=== PATIENT | male | born 1940 | race Caucasian/White ===

== ENCOUNTER 2021-02-16 14:18 | Observation (INO) | payer MEDICARE, OTHER ==
--- NOTE | 2021-02-16 14:24 | ERPHSYRPT ---
- History of Present Illness Time Seen by Provider: 02/16/21 14:25 Historian: patient Exam Limitations: no limitations Physician History: Patient is a 80-year-old male presents to our ED with complaints of left-sided chest pain. Patient states that chest pain started yesterday while pushing a lawnmower. Pain described as an ache that is localized to his left chest. P atient did feel some heart palpitations transiently. Symptoms resolved. However patient went to do yard work again today and symptoms recurred. Pain associated with mild shortness of breath. No associated nausea or vomiting. No diaphoresis no syncope. No dizziness. No rash. No fever. Symptoms are mild to moderate in intensity when present. Rest improves symptomology. Pain worsens with activity. Patient denies a cardiac history. Patient's otherwise healthy. He voices no other complaints or concerns at this time. Timing/Duration: yesterday Activities at Onset: activity Quality: aching Location: other (Pain occurs at the left side of his chest.) Chest Pain Radiation: no radiation Severity of Pain-Max: moderate Severity of Pain-Current: none Modifying Factors: Improves With: nothing Associated Symptoms: shortness of breath (Patient experiences mild short of breath with exertion.) Prior Chest Pain/Cardiac Workup: no prior chest pain Nitro Today/Relief: no nitro taken today Aspirin Treatment Today: no aspirin today Allergies/Adverse Reactions: No Known Drug Allergies Allergy (Unverified 02/16/21 14:19) Home Medications: Gemfibrozil 600 mg [Lopid 600 mg] 1 tablet PO DAILY 02/16/21 [History] Metoprolol Succinate 50 mg [Toprol Xl 50 MG] 1 tab PO DAILY 02/16/21 [History] Pravastatin Sodium 1 tab PO HS 02/16/21 [History] Tamsulosin HCl 1 cap PO DAILY 02/16/21 [History] Vitamin B Complex [B Complex] 1 tab PO DAILY 02/16/21 [History] - Review of Systems Constitutional: No Symptoms, No Fever, No Chills Eyes: No Symptoms Ears, Nose, & Throat: No Symptoms Respiratory: No Symptoms, No Cough, No Dyspnea Cardiac: No Symptoms, No Chest Pain, No Edema, No Syncope Abdominal/Gastrointestinal: No Symptoms, No Abdominal Pain, No Nausea, No Vomi ting, No Diarrhea Genitourinary Symptoms: No Symptoms, No Dysuria Musculoskeletal: No Symptoms, No Back Pain, No Neck Pain Skin: No Symptoms, No Rash Neurological: No Symptoms, No Dizziness, No Focal Weakness, No Sensory Changes Psychological: No Symptoms Endocrine: No Symptoms Hematologic/Lymphatic: No Symptoms Immunological/Allergic: No Symptoms All Other Systems: Reviewed and Negative - Nursing Vital Signs Nursing Vital Signs: Initial Vital Signs Temperature 97.6 F 02/16/21 14:18 Pulse Rate 70 02/16/21 14:18 Respiratory Rate 16 02/16/21 14:18 Blood Pressure 150/73 02/16/21 14:18 O2 Sat by Pulse Oximetry 97 02/16/21 14:18 Pain Scale Pain Intensity 2 - Physical Exam General Appearance: no apparent distress, alert Eye Exam: PERRL/EOMI, eyes nml inspection Ears, Nose, Throat Exam: normal ENT inspection, moist mucous membranes Neck Exam: normal inspection, non-tender, supple, full range of motion Respiratory Exam: normal breath sounds, lungs clear, No respiratory distress Cardiovascular Exam: regular rate/rhythm, normal heart sounds Gastrointestinal/Abdomen Exam: soft, No tenderness, No mass Back Exam: normal inspection, No CVA tenderness, No vertebral tenderness Extremity Exam: normal inspection, normal range of motion Neurologic Exam: alert, oriented x 3, cooperative, normal mood/affect, sensation nml, No motor deficits Skin Exam: normal color, warm, dry SpO2 Interpretation: normal SpO2: 97 O2 Delivery: Room Air - Course Nursing assessment & vital signs reviewed: Yes EKG Interpreted by Me: RATE (70), Sinus Rhythm, NORMAL AXIS, NORMAL INTERVALS - Radiology Exams Chest X-ray Interpretation: Teleradiologist Report (Nonacute chest.) Ordered Tests: Active Orders 24 hr Category Date Time Status Core Dipper STAT Care 02/16/21 14:21 Active EKG-ER Only STAT Care 02/16/21 14:20 Active IV Insertion STAT Care 02/16/21 14:20 Active Pulse Oximetry (ED) STAT Care 02/16/21 14:20 Active CHEST 1 VIEW (PORTABLE) Stat Exams 02/16/21 14:21 Completed CBC W DIFF Stat Lab 02/16/21 14:33 Completed CMP Stat Lab 02/16/21 14:33 Completed MAGNESIUM Stat Lab 02/16/21 14:33 Completed NT PRO BNP Stat Lab 02/16/21 14:33 Completed TROPONIN Q3H Lab 02/16/21 14:33 Completed TROPONIN Q3H Lab 02/16/21 17:30 Ordered TROPONIN Q3H Lab 02/16/21 20:30 Ordered TROPONIN Q3H Lab 02/16/21 23:30 Ordered TROPONIN Q3H Lab 02/17/21 02:30 Ordered UA W/RFX UR CULTURE Stat Lab 02/16/21 15:56 Completed Transfer Order Routine Transfer 02/16/21 Ordered Medication Summary Discontinued Medications Generic Name Dose Route Start Last Admin Trade Name Freq PRN Reason Stop Dose Admin Aspirin 324 mg 02/16/21 16:07 02/16/21 16:13 Baby Aspirin 81 Mg Chew PO 02/16/21 16:08 324 mg STAT ONE Administration Aspirin Confirm 02/16/21 16:13 Baby Aspirin 81 Mg Chew Administered 02/16/21 16:14 Dose 324 mg .ROUTE .STK-MED ONE Nitroglycerin 1 gm 02/16/21 16:08 02/16/21 16:14 Nitro-Bid 2% Ud Packets TOP 02/16/21 16:09 1 gm STAT ONE Administration Nitroglycerin Confirm 02/16/21 16:13 Nitro-Bid 2% Ud Packets Administered 02/16/21 16:14 Dose 1 gm .ROUTE .STK-MED ONE Lab/Rad Data: Laboratory Result Diagrams 02/16/21 14:33 02/16/21 14:33 Laboratory Results 02/16/21 02/16/21 02/16/21 Range/Units 16:17 15:56 14:33 WBC (4.0-10.5) K/mm3 RBC (4.1-5.6) M/mm3 Hgb (12.5-18.0) gm/dl Hct (42-50) % MCV (78-100) fl MCH (26-32) pg MCHC (32-36) g/dl RDW (11.5-14.0) % Plt Count (150-450) K/mm3 MPV (7.5-11.0) fl Gran % (36.0-66.0) % Eos # (Auto) (0-0.5) Absolute Lymphs (auto) (1.0-4.6) Absolute Monos (auto) (0.0-1.3) Lymphocytes % (24.0-44.0) % Monocytes % (0.0-12.0) % Eosinophils % (0.00-5.0) % Basophils % (0.0-0.4) % Absolute Granulocytes (1.4-6.9) Basophils # (0-0.4) Sodium (137-145) mmol/L Potassium (3.5-5.1) mmol/L Chloride (98-107) mmol/L Carbon Dioxide (22-30) mmol/L Anion Gap (5-15) MEQ/L BUN (9-20) mg/dL Creatinine (0.66-1.25) mg/dL Estimated GFR ML/MIN Glucose (74-106) mg/dL Calcium (8.4-10.2) mg/dL Magnesium (1.6-2.3) mg/dL Total Bilirubin (0.2-1.3) mg/dL AST (17-59) U/L ALT (0-50) U/L Alkaline Phosphatase (38-126) U/L Troponin I (0.000-0.034) ng/mL NT-Pro-B Natriuret Pep 50.5 (0-1800) pg/mL Serum Total Protein (6.3-8.2) g/dL Albumin (3.5-5.0) g/dL Urine Color JANNETH (YELLOW) Urine Appearance SLIGHTLY CLOUDY (CLEAR) Urine pH 5.0 (5-6) Ur Specific [place] 1.024 (1.005-1.025) Urine Protein NEGATIVE (Negative) Urine Ketones NEGATIVE (NEGATIVE) Urine Blood NEGATIVE (0-5) Pedro/ul Urine Nitrite NEGATIVE (NEGATIVE) Urine Bilirubin NEGATIVE (NEGATIVE) Urine Urobilinogen NEGATIVE (0-1) mg/dL Ur Leukocyte Esterase NEGATIVE (NEGATIVE) Urine WBC (Auto) NONE (0-5) /HPF Urine RBC (Auto) 3-5 (0-2) /HPF U Epithel Cells (Auto) NONE (FEW) /HPF Urine Bacteria (Auto) NONE (NEGATIVE) /HPF Urine Mucus (Auto) SLIGHT (NEGATIVE) /HPF Urine Culture Reflexed NO (NO) Urine Glucose NEGATIVE (NEGATIVE) mg/dL Influenza Type A Ag NEGATIVE (NEGATIVE) Influenza Type B Ag NEGATIVE (NEGATIVE) RSV (PCR) NEGATIVE (Negative) SARS-CoV-2 (PCR) NEGATIVE (NEGATIVE) 02/16/21 02/16/21 02/16/21 Range/Units 14:33 14:33 14:33 WBC 6.6 (4.0-10.5) K/mm3 RBC 4.27 (4.1-5.6) M/mm3 Hgb 13.3 (12.5-18.0) gm/dl Hct 39.6 L (42-50) % MCV 92.7 (78-100) fl MCH 31.1 (26-32) pg MCHC 33.6 (32-36) g/dl RDW 13.2 (11.5-14.0) % Plt Count 222 (150-450) K/mm3 MPV 9.8 (7.5-11.0) fl Gran % 62.8 (36.0-66.0) % Eos # (Auto) 0.27 (0-0.5) Absolute Lymphs (auto) 1.64 (1.0-4.6) Absolute Monos (auto) 0.50 (0.0-1.3) Lymphocytes % 25.0 (24.0-44.0) % Monocytes % 7.6 (0.0-12.0) % Eosinophils % 4.1 (0.00-5.0) % Basophils % 0.5 (0.0-0.4) % Absolute Granulocytes 4.13 (1.4-6.9) Basophils # 0.03 (0-0.4) Sodium 137 (137-145) mmol/L Potassium 3.8 (3.5-5.1) mmol/L Chloride 105 (98-107) mmol/L Carbon Dioxide 23 (22-30) mmol/L Anion Gap 12.6 (5-15) MEQ/L BUN 11 (9-20) mg/dL Creatinine 0.91 (0.66-1.25) mg/dL Estimated GFR > 60.0 ML/MIN Glucose 166 H (74-106) mg/dL Calcium 8.9 (8.4-10.2) mg/dL Magnesium 2.0 (1.6-2.3) mg/dL Total Bilirubin 0.50 (0.2-1.3) mg/dL AST 30 (17-59) U/L ALT 23 (0-50) U/L Alkaline Phosphatase 58 (38-126) U/L Troponin I < 0.012 (0.000-0.034) ng/mL NT-Pro-B Natriuret Pep (0-1800) pg/mL Serum Total Protein 6.6 (6.3-8.2) g/dL Albumin 4.1 (3.5-5.0) g/dL Urine Color (YELLOW) Urine Appearance (CLEAR) Urine pH (5-6) Ur Specific [place] (1.005-1.025) Urine Protein (Negative) Urine Ketones (NEGATIVE) Urine Blood (0-5) Pedro/ul Urine Nitrite (NEGATIVE) Urine Bilirubin (NEGATIVE) Urine Urobilinogen (0-1) mg/dL Ur Leukocyte Esterase (NEGATIVE) Urine WBC (Auto) (0-5) /HPF Urine RBC (Auto) (0-2) /HPF U Epithel Cells (Auto) (FEW) /HPF Urine Bacteria (Auto) (NEGATIVE) /HPF Urine Mucus (Auto) (NEGATIVE) /HPF Urine Culture Reflexed (NO) Urine Glucose (NEGATIVE) mg/dL Influenza Type A Ag (NEGATIVE) Influenza Type B Ag (NEGATIVE) RSV (PCR) (Negative) SARS-CoV-2 (PCR) (NEGATIVE) - Progress Progress: improved Air Movement: good Progress Note: Patient reassessed. Vital stable. No active chest pain. Aspirin and nitroglycerin administered. In light of patient's history of high cholesterol age risk factor and symptomology we will admit patient for cardiac rule out. Initial troponin negative. Essentially negative nonremarkable chest x-ray. No acute pathology observed. Case discussed with Dr. Zurita who accepts admission to observation. Covid test negative. Plan of care discussed with patient. He agrees to admission at [facility] for further evaluation and treatment. at bedside. They voiced no other complaints or concerns at this time. 02/16/21 17:29 02/16/21 17:31 Blood Culture(s) Obtained: No Antibiotics given: No Discussed with : Anand Will see patient in: hospital (observation) Counseled pt/family regarding: lab results, diagnosis, rad results - Departure Departure Disposition: Observation Clinical Impression: ACS (acute coronary syndrome), Stable angina Condition: Stable Critical Care Time: No Referrals: JAXON ZURITA MD [Primary Care Provider] -
[2021-02-16 14:38] LABS: Absolute Neutrophil Ct (ANC) 4.13 (1.4-6.9); BASOPHIL % 0.5 % (0.0-0.4); Basophil (Absolute #) 0.03 (0-0.4); Eosinophil % 4.1 % (0.00-5.0); Eosinophil (Absolute #) 0.27 (0-0.5); Hematocrit 39.6 % (42-50); Hemoglobin 13.3 gm/dl (12.5-18.0); Lymphocyte (Absolute #) 1.64 (1.0-4.6); Mean Cell Volume 92.7 fl (78-100); Mean Corpuscular Hemoglobin 31.1 pg (26-32); Mean Corpuscular Hgb Concent. 33.6 g/dl (32-36); Mean Platelet Volume 9.8 fl (7.5-11.0); Monocytes % 7.6 % (0.0-12.0); Neutrophil % 62.8 % (36.0-66.0); Platelet Count 222 K/mm3 (150-450); Red Blood Count 4.27 M/mm3 (4.1-5.6); Red Cell Distribution Width 13.2 % (11.5-14.0); White Blood Count 6.6 K/mm3 (4.0-10.5)
--- NOTE | 2021-02-16 14:58 | XRAY ---
Indication: Chest pain. Comparison: April 06, 2008. Portable apical lordotic chest remains clear. Heart is not enlarged. Bony thorax intact again with mild degenerative changes. Impression: Continue nonacute chest.
[2021-02-16 14:59] LABS: ALBUMIN 4.1 g/dL (3.5-5.0); ALKALINE PHOSPHATASE 58 U/L (38-126); ANION GAP 12.6 MEQ/L (5-15); BLOOD UREA NITROGEN 11 mg/dL (9-20); CHLORIDE 105 mmol/L (98-107); Calcium 8.9 mg/dL (8.4-10.2); Carbon Dioxide 23 mmol/L (22-30); Creatinine 1 0.91 mg/dL (0.66-1.25); EST GLOMERULAR FILTRATION RATE > 60.0 ML/MIN; Glucose 166 mg/dL (74-106); Potassium 3.8 mmol/L (3.5-5.1); SGOT/AST 30 U/L (17-59); SGPT/ALT 23 U/L (0-50); SODIUM 137 mmol/L (137-145); Total Protein 6.6 g/dL (6.3-8.2)
[2021-02-16] MEDS ORDERED: BABY ASPIRIN 81 MG CHEW PO ONE (16:07)
[2021-02-16] MEDS ORDERED: NITRO-BID 2% UD PACKETS TOP ONE (16:08)
[2021-02-16] MEDS ORDERED: BABY ASPIRIN 81 MG CHEW ONE (16:13)
[2021-02-16] MEDS ORDERED: NITRO-BID 2% UD PACKETS ONE (16:13)
[2021-02-16 16:31] LABS: Appearance SLIGHTLY CLOUDY (CLEAR); Bilirubin NEGATIVE (NEGATIVE); Blood NEGATIVE Ery/ul (0-5); Glucose NEGATIVE (NEGATIVE); Ketones NEGATIVE (NEGATIVE); Leukocyte Esterase NEGATIVE (NEGATIVE); Mucus SLIGHT /HPF (NEGATIVE); Nitrite NEGATIVE (NEGATIVE); Protein,Urine Dip NEGATIVE (Negative); Specific Gravity 1.024 (1.005-1.025); Urobilinogen NEGATIVE mg/dL (0-1)
[2021-02-16 16:59] LABS: INFLUENZA A NEGATIVE (NEGATIVE); INFLUENZA B NEGATIVE (NEGATIVE); RESPIRATORY SYNCTIAL VIRUS NEGATIVE (Negative)
[2021-02-16] MEDS ORDERED: Senokot-S Tablet PO PRN (18:04)
[2021-02-16] MEDS ORDERED: MILK OF MAGNESIA 30 ML PO PRN (18:04)
[2021-02-16] MEDS ORDERED: TYLENOL 325 MG PO PRN (18:04)
[2021-02-16] MEDS ORDERED: MAALOX ES 30 ML UNIT DOSE PO PRN (18:04)
[2021-02-16] MEDS ORDERED: Zofran 4 MG/2 ML VIAL IV PRN (18:04)
[2021-02-16] MEDS ORDERED: Flomax 0.4 MG PO SCH (22:00)
[2021-02-16] MEDS ORDERED: ZOCOR 20MG PO SCH (22:00)
[2021-02-16] MEDS ORDERED: ECOTRIN 81 MG PO SCH (22:00)
[2021-02-16] MEDS ORDERED: LOPID 600 MG PO SCH (22:00)
[2021-02-17 04:52] VITALS: O2SAT 94
[2021-02-17] MEDS ORDERED: VITA-BEE WITH C PO SCH (10:00)
[2021-02-17] MEDS ORDERED: Toprol Xl 50 MG PO SCH (10:00)
[2021-02-17] MEDS ORDERED: VITAMIN B COMPLEX PO SCH (10:00)
[2021-02-17 12:25] VITALS: BP 134/63; PULSE 62
--- NOTE | 2021-02-17 17:14 | PCM.SSS ---
History of Present Illness - Chief Complaint Chief Complaint: chest pain off and on for 1 day History of Present Illness: is a 80 year old male.presents to our ED with complaints of left- sided chest pain. Patient states that chest pain started yesterday while pushing a lawnmower. Pain described as an ache that is localized to his left chest. Patient did feel some heart palpitations transiently. Symptoms resolved. However patient went to do yard work again today and symptoms recurred. Pain associated with mild shortness of breath. No associated nausea or vomiting. No diaphoresis no syncope. No dizziness. No rash. No fever. Symptoms are mild to moderate in intensity when present. Rest improves symptomology. Pain worsens with activity. Patient denies a cardiac history. Patient's otherwise healthy. He voices no other complaints or concerns at this time. - Review of Systems Constitutional: No Fever, No Chills Eyes: No Symptoms Ears, Nose, & Throat: No Symptoms Respiratory: No Cough, No Short Of Breath Cardiac: Chest Pain, Orthopnea, No Edema, No Syncope Abdominal/Gastrointestinal: No Abdominal Pain, No Nausea, No Vomiting, No Diarrhea Genitourinary Symptoms: No Dysuria Musculoskeletal: No Back Pain, No Neck Pain Skin: No Rash Neurological: No Dizziness, No Focal Weakness, No Sensory Changes Psychological: No Symptoms Endocrine: No Symptoms Hematologic/Lymphatic: No Symptoms Immunological/Allergic: No Symptoms Medications & Allergies Home Medications: Home Medication List Aspirin 81 mg PO HS 02/16/21 [History Confirmed 02/16/21] Gemfibrozil 600 mg [Lopid 600 mg] 600 mg PO HS 02/16/21 [History Confirmed 02/16/21] Metoprolol Succinate 50 mg [Toprol Xl 50 MG] 50 tab PO DAILY 02/16/21 [History Confirmed 02/16/21] Pravastatin Sodium 40 tab PO HS 02/16/21 [History Confirmed 02/16/21] Tamsulosin HCl 0.4 tab PO HS 02/16/21 [History Confirmed 02/16/21] Vitamin B Complex [B Complex] 1 tab PO DAILY 02/16/21 [History Confirmed 02/16/21] Allergies/Adverse Reactions: Allergies Allergy/AdvReac Type Severity Reaction Status Date / Time No Known Drug Allergies Allergy Verified 02/16/21 18:06 - Past Medical History Past Medical History: Yes Neurological History: No Pertinent History ENT History: No Pertinent History Cardiac History: High Cholesterol, Hypertension Respiratory History: No Pertinent History Endocrine Medical History: Hypoglycemia Musculoskelatal History: Arthritis GI Medical History: No Pertinent History History: No Pertinent History Pyscho-Social History: No Pertinent History Male Reproductive Disorders: Prostate Problems - Past Surgical History Past Surgical History: Yes Neuro Surgical History: No Pertinent History Cardiac History: No Pertinent History Respiratory Surgery: No Pertinent History GI Surgical History: No Pertinent History Genitourinary Surgical Hx: No Pertinent History Musculskeletal Surgical Hx: No Pertinent History Male Surgical History: No Pertinent History Other Surgical History: I & D OF LEG WOUND - Social History Smoking Status: Never smoker Exposure to second hand smoke: No Alcohol: None Drug Use: none - Physical Exam Vital Signs: Vital Signs - 24 hr Temp Pulse Resp BP Pulse Ox 02/17/21 12:24 62 134/63 02/17/21 10:02 66 112/60 02/17/21 07:47 97.8 F 63 18 93/52 94 L 02/17/21 07:19 94 L 02/17/21 04:00 97.9 F 62 18 108/62 94 L 02/16/21 23:55 97.7 F 63 18 104/59 93 L 02/16/21 21:25 93 L 02/16/21 19:31 97.5 F 59 L 16 125/65 93 L 02/16/21 18:09 97.5 F 59 L 16 125/65 93 L 02/16/21 17:31 97 General Appearance: no apparent distress, alert Neurologic Exam: alert, oriented x 3, cooperative, normal mood/affect, nml cerebellar function, nml station & gait, sensation nml, No motor deficits Eye Exam: PERRL/EOMI, eyes nml inspection Ears, Nose, Throat Exam: normal ENT inspection, TMs normal, pharynx normal, moist mucous membranes Neck Exam: normal inspection, non-tender, supple, full range of motion Respiratory Exam: normal breath sounds, lungs clear, No respiratory distress Cardiovascular Exam: regular rate/rhythm, normal heart sounds, normal peripheral pulses Gastrointestinal/Abdomen Exam: soft, normal bowel sounds, No tenderness, No mass Back Exam: normal inspection, normal range of motion, No CVA tenderness, No vertebral tenderness Extremity Exam: normal inspection, normal range of motion, pelvis stable Skin Exam: normal color, warm, dry, No rash Lymphatic Exam: No adenopathy Results - Labs Lab/Micro Results: Lab Results-Last 24 Hours 02/16/21 02/16/21 02/16/21 Range/Units 18:15 20:40 23:30 Troponin I < 0.012 < 0.012 < 0.012 (0.000-0.034) ng/mL Triglycerides (30-150) mg/dL Cholesterol (50-200) mg/dL LDL Cholesterol (30-100) mg/dL HDL Cholesterol (40-60) mg/dL Heart Disease Risk Ratio 02/17/21 02/17/21 Range/Units 02:45 02:45 Troponin I < 0.012 (0.000-0.034) ng/mL Triglycerides 106 (30-150) mg/dL Cholesterol 144 (50-200) mg/dL LDL Cholesterol 89 (30-100) mg/dL HDL Cholesterol 36 L (40-60) mg/dL Heart Disease Risk Ratio 4.0 - Radiology Impressions Radiology Exams & Impressions: Radiology Procedures Category Date Time Status CHEST 1 VIEW (PORTABLE) Stat Exams 02/16/21 14:21 Completed - Other Procedures and Tests Respiratory Therapy 02/18/21 05:00 EKG DAILY 02/19/21 05:00 EKG DAILY Assessment/Plan (1) Chest pain, rule out acute myocardial infarction Status: Acute Code(s): R07.9 - CHEST PAIN, UNSPECIFIED (2) ACS (acute coronary syndrome) Status: Acute Code(s): I24.9 - ACUTE ISCHEMIC HEART DISEASE, UNSPECIFIED (3) Stable angina Status: Acute Code(s): I20.8 - OTHER FORMS OF [facility] Hospital Summary - Hospital Course Hospital Course: Chief Complaint Diagnosis ACS Allergies Allergy/AdvReac Type Severity Reaction Status Date / Time No Known Drug Allergies Allergy Verified 02/16/21 18:06 Vital Signs (Last 24 hours) Temp Pulse Resp BP Pulse Ox 02/17/21 12:24 62 134/63 02/17/21 10:02 66 112/60 02/17/21 07:47 97.8 F 63 18 93/52 94 L 02/17/21 07:19 94 L 02/17/21 04:00 97.9 F 62 18 108/62 94 L 02/16/21 23:55 97.7 F 63 18 104/59 93 L 02/16/21 21:25 93 L 02/16/21 19:31 97.5 F 59 L 16 125/65 93 L 02/16/21 18:09 97.5 F 59 L 16 125/65 93 L 02/16/21 17:31 97 Home Medications Medication Instructions Recorded Confirmed Last Taken Type Aspirin 81 mg PO HS 02/16/21 02/16/21 02/15/21 History Gemfibrozil 600 mg [Lopid 600 600 mg PO HS 02/16/21 02/16/21 02/15/21 History mg] Metoprolol Succinate 50 mg 50 tab PO DAILY 02/16/21 02/16/21 02/16/21 History [Toprol Xl 50 MG] Pravastatin Sodium 40 tab PO HS 02/16/21 02/16/21 02/15/21 History Tamsulosin HCl 0.4 tab PO HS 02/16/21 02/16/21 02/15/21 History Vitamin B Complex [B Complex] 1 tab PO DAILY 02/16/21 02/16/21 02/16/21 History Current Medications Discontinued Medications Generic Name Dose Route Start Last Admin Trade Name Freq PRN Reason Stop Dose Admin Acetaminophen 650 mg 02/16/21 18:04 Tylenol 325 Mg PO 03/18/21 18:03 Q4H PRN PRN PAIN AND/OR FEVER Al Hydrox/Mg Hydrox/Simethicone 30 ml 02/16/21 18:04 Maalox Es 30 Ml Unit Dose PO 03/18/21 18:03 Q4H PRN PRN INDIGESTION Aspirin 324 mg 02/16/21 16:07 02/16/21 16:13 Baby Aspirin 81 Mg Chew PO 02/16/21 16:08 324 mg STAT ONE Administration Aspirin Confirm 02/16/21 16:13 Baby Aspirin 81 Mg Chew Administered 02/16/21 16:14 Dose 324 mg .ROUTE .STK-MED ONE Aspirin 81 mg 02/16/21 22:00 02/16/21 21:14 Ecotrin 81 Mg PO 03/18/21 21:59 81 mg HS BRIEN Administration Gemfibrozil 600 mg 02/16/21 22:00 02/16/21 21:15 Lopid 600 Mg PO 03/18/21 21:59 600 mg HS BRIEN Administration Magnesium Hydroxide 30 - 60 ml 02/16/21 18:04 Milk Of Magnesia 30 Ml PO 03/18/21 18:03 QDP PRN CONSTIPATION Metoprolol Succinate 50 mg 02/17/21 10:00 02/17/21 12:32 Toprol Xl 50 Mg PO 03/19/21 09:59 50 mg DAILY BRIEN Administration Multivitamins 1 tab 02/17/21 10:00 02/17/21 10:11 Annetta-Bee With C PO 03/19/21 09:59 1 tab DAILY BRIEN Administration Nitroglycerin 1 gm 02/16/21 16:08 02/16/21 16:14 Nitro-Bid 2% Ud Packets TOP 02/16/21 16:09 1 gm STAT ONE Administration Nitroglycerin Confirm 02/16/21 16:13 Nitro-Bid 2% Ud Packets Administered 02/16/21 16:14 Dose 1 gm .ROUTE .STK-MED ONE Ondansetron HCl 4 mg 02/16/21 18:04 Zofran 4 Mg/2 Ml Vial IV 03/18/21 18:03 Q4H PRN PRN NAUSEA/VOMITING Senna/Docusate Sodium 2 udtab 02/16/21 18:04 Senokot-S Tablet PO 03/18/21 18:03 BID PRN PRN CONSTIPATION Simvastatin 40 mg 02/16/21 22:00 02/16/21 21:14 Zocor 20mg PO 03/18/21 21:59 40 mg HS BRIEN Administration Tamsulosin HCl 0.4 mg 02/16/21 22:00 02/16/21 21:14 Flomax 0.4 Mg PO 03/18/21 21:59 0.4 mg HS BRIEN Administration Intake & Output (Last 24 hours) 02/15/21 02/16/21 02/17/21 02/18/21 11:59 11:59 11:59 11:59 Intake Total 760 360 Balance 760 360 Weight 92.6 kg Laboratory Results (Last 24 hours) 02/17/21 02/17/21 02/16/21 02:45 02:45 23:30 Troponin I < 0.012 < 0.012 Triglycerides 106 Cholesterol 144 LDL Cholesterol 89 HDL Cholesterol 36 L Heart Disease Risk Ratio 4.0 02/16/21 02/16/21 20:40 18:15 Troponin I < 0.012 < 0.012 Triglycerides Cholesterol LDL Cholesterol HDL Cholesterol Heart Disease Risk Ratio Orders (Last 24 hours) Category Date Time Status Bedrest ROUTINE Activity 02/16/21 18:04 Active Bedrest with BRP/BSC ROUTINE Activity 02/16/21 18:04 Active Code Status Order ROUTINE Care 02/16/21 18:04 Active IV Care Q6H Care 02/16/21 18:04 Active Implement Chest Pain Pathway ROUTINE Care 02/16/21 18:[address] in Observation ROUTINE Care 02/16/21 18:04 Active Eben Singleton, Apply ROUTINE Care 02/16/21 18:04 Active Weight,Daily 0600 Care 02/16/21 18:04 Active Back Stayer/Discharge Plan ROUTINE Cons 02/16/21 18:32 Active Discharge Routine Discharge 02/17/21 Ordered LIPID PROFILE AM.LAB Lab 02/17/21 02:45 Completed TROPONIN Q3H Lab 02/16/21 18:15 Completed TROPONIN Q3H Lab 02/16/21 20:40 Completed TROPONIN Q3H Lab 02/16/21 23:30 Completed TROPONIN Q3H Lab 02/17/21 02:45 Completed Acetaminophen 325 mg [Tylenol 325 mg] Med 02/16/21 18:04 Discontinued 650 mg PO Q4H PRN PRN Aspirin EC 81 mg [Ecotrin 81 mg] Med 02/16/21 22:00 Discontinued 81 mg PO HS Gemfibrozil 600 mg [Lopid 600 mg] Med 02/16/21 22:00 Discontinued 600 mg PO HS Mag Hydrox/Al Hydrox/Simeth [Maalox Es 30 ml Unit Med 02/16/21 18:04 Discontinued Dose] 30 ml PO Q4H PRN PRN Magnesium Hydroxide 30 ml [Milk of Magnesia 30 ml Med 02/16/21 18:04 Discontinued ] 30 - 60 ml PO QDP PRN Metoprolol Succinate 50 mg [Toprol Xl 50 MG] Med 02/17/21 10:00 Di scontinued 50 mg PO DAILY Ondansetron HCl 4 mg/2 ml [Zofran 4 MG/2 ML VIAL] Med 02/16/21 18:04 Discontinued 4 mg IV Q4H PRN PRN Senna/Docusate Sodium Tab [Senokot-S Tablet] Med 02/16/21 18:04 Discontinued 2 udtab PO BID PRN PRN Simvastatin 20Mg [Zocor 20Mg] Med 02/16/21 22:00 Discontinued 40 mg PO HS Tamsulosin HCl 0.4 mg [Flomax 0.4 MG] Med 02/16/21 22:00 Discontinued 0.4 mg PO HS Vitamin B Comp W-C [Annetta-Bee with C] Med 02/17/21 10:00 Discontinued 1 tab PO DAILY EKG DAILY RT 02/17/21 05:00 Completed EKG DAILY RT 02/18/21 05:00 Active EKG DAILY RT 02/19/21 05:00 Active EKG Q8HX2,QAMX3,PRN RT 02/16/21 18:04 Completed EKG ROUTINE RT 02/16/21 21:20 Completed Pulse Oximetry .spot check RT 02/16/21 20:08 Active Patient Care Notes (Last 24 hours) 02/17/21 12:08 Case Management Note by Carissa Ragsdale DR. ROUNDED AND EVALUATED, DISCUSSED DX AND DISCHARGE PLAN WITH PT AND . BOTH VERBALIZED UNDERSTANDING OF INFORMATION AND UNDERSTAND THAT IF S/S RETURN TO COME BACK TO HOSPITAL. REPORTS THAT PT HAS AN APPOINTMENT TO SEE DR. Marylou CUENCA NEXT WEEK. REPORTS THAT HE HAS BEEN HAVING CHEST PRESSURE WITH ACTIVITY. DR. ZURITA DISCUSSED FOLLOWUP APPOINTMENT, AND ENCOURAGED TO KEEP APPOINTMENT WITH DR. Marylou CUENCA. PT/ DENY ADDNL NEEDS FOR DISCHARGE. Initialized on 02/17/21 12:08 - END OF NOTE 02/17/21 11:12 Nursing Note by Yarely Doyle Assessment completed by Gaby Engle [employer] Operator Initialized on 02/17/21 11:12 - END OF NOTE 02/16/21 23:52 Nursing Note by Vaishnavi Palafox PT C/T DENY CHEST DISCOMFORT, CURRENTLY RESTING IN BED AFTE USING RESTROOM. Initialized on 02/16/21 23:52 - END OF NOTE 02/16/21 22:21 Nursing Note by Vaishnavi Palafox Pt c/t deny chest pain or discomfort. Initialized on 02/16/21 22:21 - END OF NOTE - Vitals & Intake/Output Vital Signs: Vital Signs Temperature 97.8 F 02/17/21 07:47 Pulse Rate 62 02/17/21 12:24 Respiratory Rate 18 02/17/21 07:47 Blood Pressure 134/63 02/17/21 12:24 O2 Sat by Pulse Oximetry 94 L 02/17/21 07:47 Intake & Output: Intake & Output 02/15/21 02/16/21 02/17/21 02/18/21 11:59 11:59 11:59 11:59 Intake Total 760 360 Balance 760 360 Weight 92.6 kg - Lab Result Diagrams: 02/16/21 14:33 02/16/21 14:33 Lab Results-Last 24 Hrs: Lab Results-Last 24 Hours 02/16/21 02/16/21 02/16/21 Range/Units 18:15 20:40 23:30 Troponin I < 0.012 < 0.012 < 0.012 (0.000-0.034) ng/mL Triglycerides (30-150) mg/dL Cholesterol (50-200) mg/dL LDL Cholesterol (30-100) mg/dL HDL Cholesterol (40-60) mg/dL Heart Disease Risk Ratio 02/17/21 02/17/21 Range/Units 02:45 02:45 Troponin I < 0.012 (0.000-0.034) ng/mL Triglycerides 106 (30-150) mg/dL Cholesterol 144 (50-200) mg/dL LDL Cholesterol 89 (30-100) mg/dL HDL Cholesterol 36 L (40-60) mg/dL Heart Disease Risk Ratio 4.0 - Radiology Exams Ordered Rad Exams-Entire Visit: Radiology Procedures Category Date Time Status CHEST 1 VIEW (PORTABLE) Stat Exams 02/16/21 14:21 Completed - Procedures and Test Procedures and Tests throughout Hospitalization: Therapy Orders & Screens 02/16/21 18:04 EKG Q8HX2,QAMX3,PRN Comment: 02/16/21 21:20 EKG ROUTINE Comment: Diagnosis: ACS 02/17/21 05:00 EKG DAILY Comment: Diagnosis: ACS 02/18/21 05:00 EKG DAILY Comment: Diagnosis: ACS 02/19/21 05:00 EKG DAILY Comment: Diagnosis: ACS - Discharge Discharge Date: 02/17/21 Disposition: Home, Self-Care Condition: Stable Prescriptions: Continue Tamsulosin HCl 0.4 tab PO HS Pravastatin Sodium 40 tab PO HS Metoprolol Succinate 50 mg [Toprol Xl 50 MG] 50 tab PO DAILY Gemfibrozil 600 mg [Lopid 600 mg] 600 mg PO HS Vitamin B Complex [B Complex] 1 tab PO DAILY Aspirin 81 mg PO HS Instructions: Chest Pain (DC) Additional Instructions: DR ZURITA APPOINTMENT AT [facility] Follow up with: MEG CUENCA [CONSULTING PHYSICIAN] - (KEEP YOUR SCHEDULED APPOINTMENT WITH DR. Marylou CUENCA NEXT WEEK.) JAXON ZURITA MD [Primary Care Provider] - 03/06/21 2:45 pm Forms: Discharge Instructions
== END 2021-02-17 12:57 | disposition home or self-care (01) ==
LOC: ED 14:18 → MED SURG 17:53
PROVIDERS: ADMIT General Practice; ATTEND General Practice
DX: R07.9 Chest pain, unspecified (principal); R06.02 Shortness of breath; I24.9 Acute ischemic heart disease, unspecified; I20.8 Other forms of angina pectoris; Z79.899 Other long term (current) drug therapy; I10 Essential (primary) hypertension; E78.00 Pure hypercholesterolemia, unspecified; Z20.828 Contact with and (suspected) exposure to other viral communicable diseases
CPT/HCPCS: 0241U; 36000; 36415; 71045; 80053; 80061; 81001; 83721; 83735; 83880; 84484; 85025; 93005; 93041; 93268; 94760; 99285; G0378; A9270-GY